=== PATIENT | female | born 1970 | race African-American/Black ===

== ENCOUNTER → 2017-01-20 | Outpatient (CLI) | payer OTHER ==
[~2017-01-20] MED LIST: ASMALPRED IH; HYDROCODON-ACE1 EAC7 PO; MEDROLDOSEPACK PO; NAPROSYN500 MG PO; NEXIUM PO; NORCO 5-325 TA1 EACH PO; NORFLEX100 MG PO; SINGULAIR 10 MG10 M1 PO; WELLBUTRIN SR150 MG PO; ZOFRAN4 MG PO
== END ==
LOC: CAT 08:17
DX: R10.9 Unspecified abdominal pain (principal)

== ENCOUNTER → 2017-12-25 | Outpatient (CLI) | payer OTHER ==
[~2017-12-25] MED LIST changes: +NEXIUM40 MG PO
== END ==
LOC: RAD 02:15
DX: Z12.31 Encounter for screening mammogram for malignant neoplasm of breast (principal)

== ENCOUNTER → 2018-01-26 | Outpatient (CLI) | payer OTHER | LOC: CAT 06:18 | DX: N83.292 Other ovarian cyst, left side (principal); Z90.49 Acquired absence of other specified parts of digestive tract ==

== ENCOUNTER → 2018-12-25 | Outpatient (CLI) | payer OTHER | LOC: RAD 01:51 | DX: Z12.31 Encounter for screening mammogram for malignant neoplasm of breast (principal) ==

== ENCOUNTER → 2020-07-30 | Outpatient (CLI) | payer OTHER | LOC: BC 10:31 | PROVIDERS: ATTEND Obstetrics & Gynecology | DX: Z12.31 Encounter for screening mammogram for malignant neoplasm of breast (principal) ==

== ENCOUNTER → 2021-08-24 | Outpatient (CLI) | payer OTHER | LOC: RAD 11:14 | PROVIDERS: ATTEND Neuromusculoskeletal Medicine & OMM | DX: Z12.31 Encounter for screening mammogram for malignant neoplasm of breast (principal); N64.89 Other specified disorders of breast ==